=== PATIENT | male | born 1955 | race Caucasian/White ===

== ENCOUNTER 2024-03-17 11:42 | Emergency (ER) | payer MEDICARE | END 2024-03-17 12:36 | disposition home or self-care (01) | LOC: BURERS 11:42 | DX: S29.011A Strain of muscle and tendon of front wall of thorax, initial encounter (principal); F17.220 Nicotine dependence, chewing tobacco, uncomplicated; W18.30XA Fall on same level, unspecified, initial encounter | CPT/HCPCS: 71250 ==